=== PATIENT | male | born 1970 | race Caucasian/White ===

== ENCOUNTER 2016-09-20 11:56 | Emergency (ER) | payer MEDICAID ==
[2016-09-20 12:09] VITALS: BMI 27.8
[2016-09-20 12:14] VITALS: TEMP 99.5
--- NOTE | 2016-09-20 12:16 | ED PDOC ---
Arrival/HPI - General Chief Complaint: Shortness Of Breath Time Seen by Provider: 09/20/16 11:57 Historian: Patient - History of Present Illness Narrative History of Present Illness (Text): 09/20/16 11:58 A 46 year old male, whose past medical history includes asthma and hypertension , presents to the emergency department complaining of shortness of breath for the past hour and half. Patient reports he has a history of asthma, which is generally exacerbated by stress and an hour and half ago he was stressed out by his sister. Patient does have a cough but denies any fever, runny nose, or other complaints at this time. Patient did use advir prior to arrival. The patient is also requesting STD testing. PMD: from [place] Time/Duration: 1-3 hours Symptom Onset: Sudden Symptom Course: Unchanged Quality: Other Activities at Onset: Rest Context: Home Past Medical History - Provider Review Nursing Documentation Reviewed: Yes - Cardiac Hx Cardiac Disorders: Yes Hx Hypertension: Yes - Pulmonary Hx Respiratory Disorders: Yes Hx Asthma: Yes - Neurological Hx Neurological Disorder: No - HEENT Hx HEENT Disorder: No - Renal Hx Renal Disorder: No - Endocrine/Metabolic Hx Endocrine Disorders: No - Hematological/Oncological Hx Blood Disorders: No - Integumentary Hx Dermatological Disorder: No - Musculoskeletal/Rheumatological Hx Musculoskeletal Disorders: No Hx Arthritis: No - Gastrointestinal Hx Gastrointestinal Disorders: No - Genitourinary/Gynecological Hx Genitourinary Disorders: No - Psychiatric Hx Psychophysiologic Disorder: Yes Hx Anxiety: Yes Hx Depression: Yes Hx Substance Use: Yes (occasional marijuana) - Surgical History Hx Cholecystectomy: Yes Hx Tonsillectomy: Yes Family/Social History - Physician Review Nursing Documentation Reviewed: Yes Family/Social History: Unknown Family HX Smoking Status: Never Smoked Hx Alcohol Use: Yes Frequency of alcohol use: Socially Hx Substance Use: Yes (occasional marijuana) Allergies/Home Meds Allergies/Adverse Reactions: Allergies crab Allergy (Verified 09/20/16 12:09) URTICARIA Review of Systems - Physician Review All systems were reviewed & negative as marked: Yes - Review of Systems Constitutional: absent: Fevers Respiratory: SOB, Cough Cardiovascular: absent: Chest Pain Gastrointestinal: absent: Nausea, Vomiting Physical Exam Vital Signs Reviewed: Yes Vital Signs Temp Pulse Resp BP Pulse Ox 09/20/16 13:54 110 H 18 147/88 98 09/20/16 12:12 99.5 F 115 H 17 155/99 H 99 09/20/16 12:00 22 98 Temperature: Afebrile Blood Pressure: Normal Pulse: Tachycardic Respiratory Rate: Normal Appearance: Positive for: Well-Appearing, Non-Toxic, Comfortable Pain Distress: None Mental Status: Positive for: Alert and Oriented X 3 - Systems Exam Head: Present: Atraumatic, Normocephalic Pupils: Present: PERRL Extroacular Muscles: Present: EOMI Conjunctiva: Present: Normal Mouth: Present: Moist Mucous Membranes Neck: Present: Normal Range of Motion Respiratory/Chest: Present: Good Air Exchange, Wheezes (expirtory wheeze), Other (actively coughing). No: Respiratory Distress, Accessory Muscle Use, Retracting Cardiovascular: Present: Normal S1, S2, Tachycardic. No: Murmurs Abdomen: Present: Normal Bowel Sounds. No: Tenderness, Distention, Peritoneal Signs Back: Present: Normal Inspection Upper Extremity: Present: Normal Inspection. No: Cyanosis, Edema Lower Extremity: Present: Normal Inspection. No: Edema Neurological: Present: GCS=15, CN II-XII Intact, Speech Normal Skin: Present: Warm, Dry, Normal Color. No: Rashes Psychiatric: Present: Alert, Oriented x 3, Normal Insight, Normal Concentration Medical Decision Making ED Course and Treatment: 09/20/16 11:58 Impression: A 46 year old male with shortness of breath. Patient also requesting STD testing. Differential Diagnosis include but are not limited to: Asthma vs. Bronchitis vs. Pneumonia Plan: -- EKG -- Chest X-ray -- Labs -- Duoneb and Solu-Medrol -- Chlamydia/GC RNA -- Reassess and disposition Progress Notes: EKG: Ordered, reviewed, and independently interpreted the EKG. Rate : 111 BPM Rhythm : Sinus tachycardia Interpretation : No ST-segment elevations or depressions, no T-wave inversions, normal intervals. Comparison : No previous EKG for comparison. 09/20/16 14:00 Chest X-ray Impression: As read by me, no acute findings. On re-evaluation, the patient feels better and is in no acute distress. He wants a refill also of his advair and needs a new nebulizer machine. He just moved her again and doesn't have time to get a doctor's appointment. I have discussed the results and plan with the patient, who expresses understanding. Patient in agreement with plan to discharged home. Patient is stable for discharge. Patient was instructed to follow up with physician/clinic in 1-2 days or return if symptoms worsen or new concerning symptoms arise. - Lab Interpretations Lab Results: 09/20/16 12:44 09/20/16 12:44 Lab Results 09/20/16 12:44: Sodium 139, Potassium 4.0, Chloride 104, Carbon Dioxide 27, Anion Gap 12, BUN 11, Creatinine 0.9, Est GFR ( Amer) > 60, Est GFR (Non- Af Amer) > 60, Random Glucose 104, Calcium 9.4, Magnesium 2.1 09/20/16 12:44: WBC 11.1 H, RBC 5.02, Hgb 12.9 L, Hct 38.6 L, MCV 76.9 L, MCH 25.7, MCHC 33.4, RDW 15.0 H, Plt Count 228, MPV 10.2, Gran % 72.8 H, Lymph % ( Auto) 20.0 L, Canadian % (Auto) 6.1 H, Eos % (Auto) 0.9 L, Baso % (Auto) 0.2, Gran # 8.06 H, Lymph # 2.2, Canadian # 0.7 H, Eos # 0.1, Baso # 0.02 I have reviewed the lab results: Yes - RAD Interpretation Radiology Orders: 09/20/16 12:10 CHEST PORTABLE [RAD] Stat - Medication Orders Current Medication Orders: Discontinued Medications Albuterol/Ipratropium (Duoneb 3 Mg/0.5 Mg (3 Ml) Ud) 3 ml IH Q15M RACHEL Stop: 09/20/16 12:46 Last Admin: 09/20/16 13:07 Dose: 3 ml Methylprednisolone (Solu-Medrol) 125 mg IVP STAT STA Stop: 09/20/16 12:10 Last Admin: 09/20/16 12:42 Dose: 125 mg - Scribe Statement The provider has reviewed the documentation as recorded by the Baincaibwanda Barrera Provider Scribe Attestation: All medical record entries made by the Biancaibwanda were at my direction and personally dictated by me. I have reviewed the chart and agree that the record accurately reflects my personal performance of the history, physical exam, medical decision making, and the department course for this patient. I have also personally directed, reviewed, and agree with the discharge instructions and disposition. Disposition/Present on Arrival - Present on Arrival Any Indicators Present on Arrival: No History of DVT/PE: No History of Uncontrolled Diabetes: No Urinary Catheter: No History of Decub. Ulcer: No History Surgical Site Infection Following: None - Disposition Have Diagnosis and Disposition been Completed?: Yes Diagnosis: Asthma attack Disposition: HOME/ ROUTINE Disposition Time: 13:38 Patient Plan: Discharge Patient Problems: Current Active Problems Problem Status Onset Asthma attack Acute Condition: IMPROVED Discharge Instructions (ExitCare): Asthma (ED) Additional Instructions: Mr. Gleason, thank you for letting us take care of you today. Your provider was Dr. Barron. You were treated for Asthma Exacerbation. The emergency medical care you received today was directed at your acute symptoms. If you were prescribed any medication, please fill it and take as directed. It may take several days for your symptoms to resolve. Return to the Emergency Department if your symptoms worsen, do not improve, or if you have any other problems. Please contact your doctor or call one of the physicians/clinics you have been referred to that are listed on the Patient Visit Information form that is included in your discharge packet. Bring any paperwork you were given at discharge with you along with any medications you are taking to your follow up visit. Our treatment cannot replace ongoing medical care by a primary care provider (PCP) outside of the emergency department. Thank you for allowing the [facility] team to be part of your care today. If you had an X-Ray or CT scan: A Radiologist will review the ED reading if any change in treatment is needed we will contact you. If you had a blood, urine, or wound culture: It will take several days for the results, if any change in treatment is needed we will contact you. If you had an STI test: It will take 48 hours for the results. Please call after 1 week if you have not heard back. Prescriptions: Albuterol 0.083% [Albuterol 0.083% Inhal Rachel (2.5 mg/3 ml) UD] 2.5 mg IH PRN PRN #1 PRN Reason: Shortness Of Breath Albuterol HFA [Ventolin HFA 90 mcg/actuation (8 g)] 2 puff IH Q4 #1 puff Fluticasone/Salmeterol [Advair 250-50 Diskus] 1 each IH BID #1 blst.w.dev Nebulizer [Aerosol Therapy Nebulizer] 1 dev INH PRN PRN #1 dev PRN Reason: Wheezing predniSONE [predniSONE Tab] 40 mg PO DAILY #8 tab Referrals: María Rivas, [Primary Care Provider] - Follow up with primary Forms: [employer] ([place])
[2016-09-20] MEDS: Albuterol-Ipratrop 3 mg / 0.5 (3 ml) UD IH SCH ×3 (12:25→13:07)
[2016-09-20 12:46] LABS: ADD MANUAL DIFF? NO
[2016-09-20 12:58] LABS: BASO # 0.02 K/mm3 (0.0-2.0); BASO % 0.2 % (0.0-3.0); EOS # 0.1 (0.0-0.7); EOS % 0.9 % (1.5-5.0); GRAN # 8.06 (1.4-6.5); GRAN % 72.8 % (50.0-68.0); HEMATOCRIT 38.6 % (42.0-52.0); LYMPH # 2.2 (1.2-3.4); MEAN CELL VOLUME 76.9 fL (80.0-105.0); MEAN CORPUSCULAR HEMOGLOBIN 25.7 pg (25.0-35.0); MEAN CORPUSCULAR HGB CONC 33.4 g/dl (31.0-37.0); MEAN PLATELET VOLUME 10.2 fl (7.0-11.0); MONO # 0.7 (0.1-0.6); MONO % 6.1 % (1.0-6.0); PLATELET COUNT 228 10^3/uL (120.0-450.0); WHITE BLOOD COUNT 11.1 10^3/ul (4.5-11.0)
[2016-09-20 13:01] LABS: BLOOD UREA NITROGEN 11 mg/dL (7-21); CALCIUM 9.4 mg/dL (8.4-10.5); CARBON DIOXIDE 27 mmol/L (21-33); CHLORIDE 104 mmol/L (98-107); GFR AFRICAN-AMERICAN > 60; GLUCOSE,RANDOM 104 mg/dL (70-110); MAGNESIUM 2.1 mg/dL (1.7-2.2); SODIUM 139 mmol/L (132-148)
[2016-09-20 13:55] VITALS: BP 147/88; PULSE 110; RESP 18; O2SAT 98
--- NOTE | 2016-09-20 15:14 | RAD ---
HISTORY: cough r/o PNA COMPARISON: No prior. FINDINGS: LUNGS: No active pulmonary disease. PLEURA: No significant pleural effusion identified, no pneumothorax apparent. CARDIOVASCULAR: Normal. OSSEOUS STRUCTURES: No significant abnormalities. VISUALIZED UPPER ABDOMEN: Normal. OTHER FINDINGS: None. IMPRESSION: No active disease.
--- NOTE | 2016-09-20 18:48 | CARD ---
APPROVED REPORT EKG Measurement Heart [id number] <Conclusion> Sinus tachycardia Otherwise normal ECG
== END 2016-09-20 13:54 | disposition home or self-care (01) ==
LOC: ED 11:56
DX: J45.909 Unspecified asthma, uncomplicated (principal); I10 Essential (primary) hypertension
CPT/HCPCS: 71010; 80048; 83735; 85025; 93005; 94150; 94640; 96374; 99284; J2930